=== PATIENT | male | born 1995 | race Caucasian/White ===

== ENCOUNTER 2024-07-03 01:17 | Emergency (ER) | payer OTHER, SELFPAY ==
[2024-07-03 01:21] VITALS: BP 130/84
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
== END 2024-07-03 01:45 ==
LOC: EMR 01:17
PROVIDERS: EMERGENCY PHYSICIAN Student in an Organized Health Care Education/Training Program
DX: F10.90 Alcohol use, unspecified, uncomplicated (principal); F17.200 Nicotine dependence, unspecified, uncomplicated
CPT/HCPCS: 99282